=== PATIENT | male | born 1930 | race Caucasian/White ===

== ENCOUNTER 2016-08-15 20:57 | Observation (INO) ==
[2016-08-15] MEDS ORDERED: Acetaminophen 325 MG TABLET PO PRN (23:51)
[2016-08-15] MEDS ORDERED: Furosemide 20 MG/2 ML VIAL IVP ONE (23:59)
[2016-08-15] MEDS ORDERED: Ipratropium/Albuterol Neb 3 ML IH PRN (23:59)
--- NOTE | 2016-08-16 00:17 | Internal Med History&Physical ---
Date of Encounter: 08/15/16 Time of Encounter: 23:00 Assessment and Plan (1) CHF (congestive heart failure) Current visit: Yes Status: Acute Patient has clinical signs of CHF with mild respiratory distress, wheezing, chest x-ray shows pulmonary congestion, and elevated BNP. - Review patient's old chart, he has severe aortic stenosis. - We will give patient one dose of mild diuretic. - Oxygen treatment. - Echocardiogram - Continuous close monitoring. Qualifiers: Congestive heart failure type: unspecified congestive heart failure type Congestive heart failure chronicity: unspecified congestive heart failure chronicity Qualified Code(s): I50.9 - Heart failure, unspecified (2) Vertigo Current visit: Yes Status: Acute Patient has chronic him brought to go with tinnitus, probably peripheral vertigo. - CT head negative for infarct - We will place meclizine for symptom control - Patient may need follow ENT as outpatient. - PTOT evaluation for placement. (3) CAD (coronary artery disease) Current visit: Yes Status: Acute Patient has a history of CAD S/P stent. Denies chest pain at this point. We will continue aspirin, beta diana, and statin. - We will track 3 sets of troponin since there is an elevated troponin. - Follow echocardiogram. Qualifiers: Coronary Disease-Associated Artery/Lesion type: [place] artery [place] vs. transplanted heart: [place] heart Associated angina: without angina Qualified Code(s): I25.10 - Atherosclerotic heart disease of [place] coronary artery without angina pectoris (4) Hypertension Current visit: Yes Status: Acute Continue home medication. Qualifiers: Hypertension type: essential hypertension Qualified Code(s): I10 - Essential (primary) hypertension (5) DVT prophylaxis Current visit: Yes Status: Acute Heparin subcutaneously. (6) Elevated troponin Current visit: No Status: Acute First troponin 0.17. Patient denies chest pain or shortness of breath. Will check 3 sets of troponin. - We will consult cardiology for further management consider patient has severe , history of CAD, signs of CHF and troponin elevation. - Continue close cardiac monitoring. Internal Medicine - H&P: HPI Chief complaint: Dizziness Admitted From: Home Plans for Post Hospital Care: Home History of present illness: Mr. Bess is a 86 year old male transferred from [facility] emergency room for dizziness. Patient said he has chronic dizziness for 4 month, symptoms sometimes gets better but sometimes is worse. He has right ear tinnitus. Patient had CT had in [facility] emergency room, result is unremarkable. However, patient has elevated troponin, and a chest x-ray shows pulmonary congestion. Patient was transferred to [facility] for further management. Patient denies chest pain, shortness of breath, he has mild nausea but no vomiting. He has no fever. He has a chronic diarrhea for 2 years, with 3-4 times watery diarrhea per night. He had C. difficile test previously which was negative. When I saw patient, to me he is in mild respiratory distress although he denies shortness of breath. Patient is awake alert oriented 3. I discussed the CODE STATUS with the patient. He is DNR/DNI. Past Med Surg Social Fam HX - Past Medical History Medical history: coronary artery disease, hyperlipidemia, hypertension, valvular heart disease Psychiatric history: no psych history - Past Surgical History Surgical History: angioplasty/stent, cholecystectomy - Social History Smoking Status: Former smoker Smokeless Tobacco Status: No Alcohol use: none Drug use: unknown Internal Medicine - H&P: Meds Amiodarone [Cordarone] 200 mg PO DAILY 12/12/15 [History] Amlodipine [Norvasc] 2.5 mg PO DAILY 12/12/15 [History] Aspirin 81 mg PO DAILY 12/12/15 [History] Colestipol HCl [Colestid] 1 gm PO BID 12/12/15 [History] Metoprolol Tartrate 25 mg PO BID 12/12/15 [History] Pravastatin Sodium [Pravachol] 40 mg PO HS 12/12/15 [History] Diphenhydramine HCl [Nighttime Sleep Aid] 50 mg PO HS 08/15/16 [History] Ferrous Sulfate [Iron] 325 mg PO DAILY 08/15/16 [History] Pot Chloride/Pot Bicarb/Cit AC [Potassium Cl 25 Meq Tab Eff] 25 meq PO DAILY 09/26 [History] Allergies No Known Allergies Allergy (Verified 11/19/14 06:47) All Systems PM: A 10-system review of systems was performed and is negative for pertinent findings except as documented above in the HPI. - Constitutional Vitals: Temp Pulse Resp BP Pulse Ox 97.6 F 84 16 114/72 90 08/15/16 23:17 08/15/16 23:17 08/15/16 23:17 08/15/16 23:17 08/15/16 23:17 General appearance: Present: mild distress, A&O X 3, answers questions appropriately - Head Head exam: Present: atraumatic, normocephalic - Eye Eye exam: Present: PERRL, conjuntiva pink, sclera anicteric Pupils: Present: PERRL - Neck Neck exam general surgery: Present: supple, trachea midline. Absent: lymphadenopathy - Respiratory Respiratory exam: Present: CTAB, wheezes (Scattered wheezes bilaterally). Absent: accessory muscle use, rales, rhonchi - Cardiovascular Cardiovascular exam: Present: RRR, +S1, +S2. Absent: diastolic murmur, gallop, rubs, systolic murmur - GI/Abdominal GI/Abdominal exam: Present: normal bowel sounds, soft, no peritoneal signs. Absent: distended, tenderness - Extremities Exam Extremities exam: Present: pedal edema (Mild to moderate pedal edema bilaterally ), warm, radial pulses palpable and symetrical. Absent: calf tenderness, cyanotic - Neurological Exam Neurological exam: Present: CN II-XII intact, oriented X3, no focal deficits. Absent: pronater drift, facial droop, speech deficit - Skin Skin exam: Present: dry, intact Internal Med - H&P Results - EKG Data -: EKG Interpreted by Myself (LBBB which is old (seen on previous EKG)) EKG shows normal: sinus rhythm Rate: normal
[2016-08-16 01:01] LABS: Basophils % 0.1 %; Eosinophils # 0.1 K/mcL (0.0-0.6); Eosinophils % 0.4 %; Hematocrit 32.4 % (37.5-50.1); Hemoglobin 10.8 g/dL (12.9-16.9); Immature Granulocytes % 0.7 % (0-4); Lymphocytes # 2.5 K/mcL (0.6-4.6); Mean Corpuscular HGB Conc 33.3 g/dL (31.6-35.5); Mean Corpuscular Hemoglobin 30.9 pg (28.0-33.3); Mean Corpuscular Volume 92.6 fL (83.0-100.0); Mean Platelet Volume 9.2 fL (9.4-12.4); Monocytes % 7.5 %; Neutrophils # 9.4 K/mcL (1.6-8.9); Platelet Count 291 K/mcL (140-400); Red Cell Distribution Width 14.6 % (11.5-14.5); Segmented Neutrophils % 72.3 %
[2016-08-16 01:10] LABS: BUN/Creatinine Ratio 27 (6-26); Blood Urea Nitrogen 20 mg/dL (8-26); Calcium 8.1 mg/dL (8.6-10.8); Carbon Dioxide 26 mEq/L (19-29); Chloride 99 mEq/L (98-109); Glucose 123 mg/dL (70-99); Magnesium 1.8 mg/dL (1.6-2.6); Osmolality,Calculated 282 (280-300); Phosphorous 2.8 mg/dL (2.3-4.7); Potassium 3.7 mEq/L (3.5-4.5); Sodium 134 mEq/L (136-145); eGFR For African Americans > 60 (> 60); eGFR For Non-African Americans > 60 (> 60)
[2016-08-16] MEDS: *HR* Heparin 5,000 UNIT/ML VIAL SQ SCH ×2 (06:17→18:29)
[2016-08-16] MEDS: Aspirin 81 MG TAB.CHEW PO SCH (08:47)
[2016-08-16] MEDS ORDERED: amLODIPine 5 MG TABLET PO SCH (09:00)
--- NOTE | 2016-08-16 10:00 | Internal Med Progress Note ---
<Sidney Dc - Last Filed: 08/16/16 15:08> Date of Encounter: 08/16/16 Time of Encounter: 08:20 - Assessment and plan (1) CHF (congestive heart failure) Current Visit: Yes Status: Acute Assessment and plan: 08/16/16 Echo EF 65%, indeterminate LV diastolic function. Doppler interrogation of the aortic valve was not well evaluated. LVOT was superimposed. Mild-moderate tricuspic regurgitation. At least mild pulmonary hypertension by TR gradient. IVC is not visualized to estimate RVSP. HFpEF He appears fairly euvolemic on exam, though 1-V CXR from [facility] discloses 1. Limited examination due to positioning and low lung volumes 2. Bibasilar airspace opacities likely represent atelectasis. 3. Questionable bilateral pleural effusions. 4. Pulmonary vascular congestion and/or central vascular crowding Monitor I/O Cautious diuresis regimen Qualifiers: Congestive heart failure type: unspecified congestive heart failure type Congestive heart failure chronicity: unspecified congestive heart failure chronicity Qualified Code(s): I50.9 - Heart failure, unspecified (2) Syncope Current Visit: Yes Status: Acute Assessment and plan: Clinically, suggestive of vaso-vagal, though aortic stenosis warrants further eval. 02/2015 [facility] TAVR 29mm Corevalve 08/16 Echo does not have best evaluation of aortic valve. Consideration of further studies, ? OTF Appreciate cardiology recommendations. Qualifiers: Syncope type: vasovagal syncope Qualified Code(s): R55 - Syncope and collapse (3) CAD (coronary artery disease) Current Visit: Yes Status: Chronic Assessment and plan: Cont ASA, Statin, BB Qualifiers: Coronary Disease-Associated Artery/Lesion type: [place] artery [place] vs. transplanted heart: [place] heart Associated angina: without angina Qualified Code(s): I25.10 - Atherosclerotic heart disease of [place] coronary artery without angina pectoris (4) Elevated troponin Current Visit: Yes Status: Acute Assessment and plan: Mild, relatively adynamic, peak of 0.18, trended down 0.13 Suspect 2* Aortic stenosis and CHF exacerbation. Appreciate cardiology recs. (5) DVT prophylaxis Current Visit: Yes Status: Acute Assessment and plan: Hep 5000 U SC BID - Subjective Interval history: Patient seen/eval, he affirms events prompting hospitalization. Transferred from [facility] ED for lightheadedness, with 2 weeks of LE swelling. He denies passing out or head trauma. Per outpatient records, he has history chronic Afib, CAD, 02/2015 [facility] TAVR 29mm Corevalve He is somewhat hard of hearing, appears comfortable. With further inquiry, he reports that most recent lightheaded spell prior to eval at ED was while he was getting up from the toilet. He denies any overt chest pain/tightness/palpitations/pauses. Does have some dyspnea on exertion, no cough or sick contacts. - Constitutional Vitals: Temp Pulse Resp BP Pulse Ox 97.7 F 76 16 100/58 96 08/16/16 06:50 08/16/16 06:50 08/16/16 06:50 08/16/16 06:50 08/16/16 06:50 General appearance: Present: cooperative, A&O X 3, answers questions appropriately - Head Head exam: Present: atraumatic, normocephalic - Eye Eye exam: Present: EOMI, sclera anicteric - ENT ENT exam: Present: mucous membranes moist - Neck Neck exam general surgery: Present: supple, trachea midline - Respiratory Respiratory exam: Absent: respiratory distress, rhonchi, wheezes - Cardiovascular Cardiovascular exam: Present: irregular rhythm, +S1, +S2. Absent: JVD Additional comments: systolic ejection click RSB, 3/6 - GI/Abdominal GI/Abdominal exam: Present: soft, no peritoneal signs. Absent: tenderness - Extremities Exam Extremities exam: Present: warm, radial pulses palpable and symetrical. Absent : pedal edema - Neurological Exam Neurological exam: Absent: facial droop, speech deficit Internal Medicine: Result - Labs CBC & Chem 7: 08/16/16 00:32 08/16/16 00:32 Labs: Short CBC 08/16/16 Range/Units 00:32 WBC 13.0 H (4.3-11.1) K/mcL Hgb 10.8 L (12.9-16.9) g/dL Hct 32.4 L (37.5-50.1) % Plt Count 291 (140-400) K/mcL Neutrophils # 9.4 H (1.6-8.9) K/mcL BMP 08/16/16 00:32 Sodium 134 L Potassium 3.7 Chloride 99 Carbon Dioxide 26 BUN 20 Creatinine 0.75 Glucose 123 H Calcium 8.1 L Cardiac Enzymes 08/16/16 08/16/16 Range/Units 00:32 05:56 Troponin I 0.16 H* 0.18 H* (0-0.03) ng/mL Consult Discharge Plan - Plan Referrals: Estephania Humphrey MD [Primary Care Provider] - <Errol Waterman - Last Filed: 08/16/16 17:28> Date of Encounter: 08/16/16 - Constitutional Vitals: Temp Pulse Resp BP Pulse Ox 98.1 F 69 16 99/56 93 08/16/16 16:24 08/16/16 16:24 08/16/16 16:24 08/16/16 16:24 08/16/16 16:24 Internal Medicine: Result - Labs CBC & Chem 7: 08/16/16 00:32 08/16/16 00:32 Labs: Short CBC 08/16/16 Range/Units 00:32 WBC 13.0 H (4.3-11.1) K/mcL Hgb 10.8 L (12.9-16.9) g/dL Hct 32.4 L (37.5-50.1) % Plt Count 291 (140-400) K/mcL Neutrophils # 9.4 H (1.6-8.9) K/mcL BMP 08/16/16 00:32 Sodium 134 L Potassium 3.7 Chloride 99 Carbon Dioxide 26 BUN 20 Creatinine 0.75 Glucose 123 H Calcium 8.1 L Cardiac Enzymes 08/16/16 08/16/16 08/16/16 Range/Units 00:32 05:56 12:08 Troponin I 0.16 H* 0.18 H* 0.13 H* (0-0.03) ng/mL - Attending Attestation I examined this patient and my medical decision-making was reviewed with the LIBRARY SUPERVISOR/PA/Advanced Practice Nurse/Resident Physician. I agree with the documented findings, disposition and treatment plan as described except to the extent set forth below. this is event note not a billable note
--- NOTE | 2016-08-16 12:57 | Cardiology Consult Note ---
<Shahram Collins - Last Filed: 08/16/16 13:58> Date of Encounter: 08/16/16 Time of Encounter: 13:00 Assessment and Plan (1) Elevated troponin Current Visit: No Status: Acute Per Cardiology: Troponins noted to be 0.17, 0.16, 0.18, and 0.13. Of note previous troponin noted to be 0.05 in the past. Patient denies any chest pain. Echo pending. Patient with past history of severe aortic stenosis, upon presentation suspicious for recurrent stenosis which could explain troponin elevation. Further recommendations after echo. No cardiac rehabilitation consult warranted at this time, we will reevaluate based on hospital course. Will discuss and review with Dr. Hughes. (2) CAD (coronary artery disease) Current Visit: Yes Status: Chronic Per Cardiology: History of CAD with last heart catheterization November 11 showing proximal LAD 40% stenosis with patent stent, OM1 20% stenosis, proximal RCA 30% stenosis, and distal RCA 50% stenosis. Of note right iliofemoral had severe tortuosity without significant disease and left iliofemoral moderate tortuosity without significant disease. He denies any chest pain. Again further recommendations pending echo. On aspirin, beta diana, statin. Qualifiers: Coronary Disease-Associated Artery/Lesion type: [place] artery [place] vs. transplanted heart: [place] heart Associated angina: without angina Qualified Code(s): I25.10 - Atherosclerotic heart disease of [place] coronary artery without angina pectoris (3) Elevated brain natriuretic peptide (BNP) level Current Visit: Yes Status: Acute Per Cardiology: BMP noted to be elevated at 854. Chest x-ray showed bibasilar airspace opacities likely atelectasis, questionable bilateral pleural effusions, pulmonary vascular congestion and/or central vascular crowding. Patient received a one-time dose of IV Lasix. Net I and O +60 ml. (4) Status post transcatheter aortic valve replacement (TAVR) using bioprosthesis Current Visit: Yes Status: Chronic Per Cardiology: Patient with past history severe aortic stenosis and is status post TAVR with 29mm CoreValve at [facility] 02/2015. Patient presented with increased frequency of dizziness and reported to syncopal events. Awaiting echo results. (5) Dizziness Current Visit: No Status: Acute Per Cardiology: Past history of dizziness and on meclizine as outpatient. Patient reports increased frequency and syncopal events concerning in setting of his past history severe aortic stenosis. Discussion w patient/family: The assessment and plan as outlined above was discussed with the patient who expressed understanding and agreement. All questions were answered. Thank you for involving us in the care of your patient. Please call with any questions. History of Present Illness Consult date: 08/16/16 Requesting physician: Natasha Reeves Consult reason: Elevated Troponin Chief complaint: Falls History of present illness: Mr. Bess is a 86 year old male with a relevant past medical history of hypertension, hyperlipidemia, CAD, history of hemicolectomy, diverticulosis, hard of hearing, persistent atrial fibrillation, status post TAVR with 29mm Corevalve at [facility] February 2015, past history of nicotine abuse. Last seen by Dr. Tapia in cardiology office April 2016. Of note he is noted to have chronic dizziness. Also, on amiodarone for rate control and on aspirin only for anticoagulation due to fall risk. Patient is DNR/CCA/DNI. Cardiology consult today for mild troponin elevations. Patient reports 2 falls over the past week with passing out and falling on the floor with one occurring walking to the bathroom and the other occurring from sitting on sofa to standing upright. He reports increased frequency of his dizziness. He denies any shortness of breath or chest pain. He denies any palpitations. Confirms past history of atrial fibrillation. He denies any other concerns at this point. Of note, patient is hard of hearing. No family currently present at bedside. Past Med Surg Social Fam HX - Past Medical History Attestation: Yes The following information was validated with the patient. Source: patient, old records reviewed Medical history: coronary artery disease, GI bleed, hyperlipidemia, hypertension , valvular heart disease Psychiatric history: no psych history - Past Surgical History Surgical History: angioplasty/stent, cholecystectomy, colectomy - Social History Smoking Status: Former smoker Smokeless Tobacco Status: No Alcohol use: none Drug use: none Medications and Allergies Amiodarone [Cordarone] 200 mg PO DAILY 12/12/15 [History] Amlodipine [Norvasc] 2.5 mg PO DAILY 12/12/15 [History] Aspirin 81 mg PO DAILY 12/12/15 [History] Colestipol HCl [Colestid] 1 gm PO BID 12/12/15 [History] Metoprolol Tartrate 25 mg PO BID 12/12/15 [History] Pravastatin Sodium [Pravachol] 40 mg PO HS 12/12/15 [History] Diphenhydramine HCl [Nighttime Sleep Aid] 50 mg PO HS 08/15/16 [History] Ferrous Sulfate [Iron] 325 mg PO DAILY 08/15/16 [History] Potassium Chloride [K-Tab ER] 20 meq PO DAILY 08/16/16 [History] Allergies No Known Allergies Allergy (Verified 11/19/14 06:47) All Systems Review: A 10-system review of systems was performed and is negative for pertinent findings except as documented above in the HPI. - Cardiovascular Cardiovascular: as per HPI, syncope - Neurological Neurological: dizziness, syncope Physical Examination Vital Signs, Last 4 Hours Temp Pulse Resp BP Pulse Ox 08/16/16 11:39 97.7 F 78 16 121/65 94 General: Conversant, No Apparent Distress HEENT: Atraumatic, Normocephaly Cardiac: Other (Irregularly irregular, grade 3/6 murmur appreciated) Lungs: Normal Breath Sounds, No Wheeze, Rales, Rhonchi, Other (Slightly diminished breath sounds throughout) Neuro: Alert and responsive, No focal deficits noted, Other (Hard of hearing) Skin: Other (Left arm ecchymosis noted) Musculoskeletal: No Chest Wall Tenderness Extremities: Other (Trace nonpitting bilateral lower extremity edema) Results 08/16/16 00:32 08/16/16 00:32 Lab Results Laboratory Tests 12/06/15 08/15/16 08/16/16 17:10 18:55 00:32 Hgb Hct Magnesium Troponin I 0.05 H* 0.17 H* 0.16 H* 08/16/16 08/16/16 08/16/16 00:32 00:32 05:56 Hgb 10.8 L Hct 32.4 L Magnesium 1.8 Troponin I 0.18 H* 08/16/16 12:08 Hgb Hct Magnesium Troponin I 0.13 H* Intake & Output 08/13/16 08/14/16 08/15/16 08/16/16 23:59 23:59 23:59 23:59 Intake Total 360 / 360 Output Total 300 / 300 Balance 60 / 60 Weight 72.6 kg Active Medications Acetaminophen (Tylenol) 650 mg PO Q6HR PRN PRN Reason: Mild Pain (1-3) Stop: 02/14/17 23:52 Albuterol/Ipratropium (Duoneb) 3 ml IH [id number] PRN; Protocol PRN Reason: Shortness Of Breath/Wheezing Stop: 02/14/17 23:59 Amlodipine Besylate (Norvasc) 2.5 mg PO DAILY RADHA PRN Reason: Protocol Stop: 02/15/17 09:01 Last Admin: 08/16/16 08:47 Dose: 2.5 mg Aspirin (Aspirin) 81 mg PO DAILY RADHA Stop: 02/15/17 09:01 Last Admin: 08/16/16 08:47 Dose: 81 mg Docusate Sodium (Colace) 100 mg PO BID PRN PRN Reason: Constipation Stop: 02/14/17 23:52 Heparin Sodium (Porcine) (Heparin) 5,000 unit SQ Q12HCO RADHA Stop: 02/15/17 06:01 Last Admin: 08/16/16 06:17 Dose: 5,000 unit Loperamide HCl (Imodium) 2 mg PO Q4HR PRN PRN Reason: Diarrhea Stop: 02/14/17 23:59 Meclizine HCl (Antivert) 12.5 mg PO TID PRN PRN Reason: Vertigo Stop: 02/15/17 09:01 Metoprolol Tartrate (Lopressor) 25 mg PO BID [facility] Stop: 02/15/17 09:01 Last Admin: 08/16/16 08:48 Dose: 25 mg Simvastatin (Zocor) 20 mg PO HS [facility] Stop: 02/15/17 21:01 - Imaging and Cardiology Echo: pending Cardiac cath: report reviewed - EKG Interpretation EKG results cardiology: personally reviewed (afib), other (avg hr 76, afib) Consult Discharge Plan - Plan Referrals: Estephania Humphrey MD [Primary Care Provider] - <Margarita Hughes - Last Filed: 08/16/16 15:59> Date of Encounter: 08/16/16 Assessment and Plan Discussion w patient/family: The assessment and plan as outlined above was discussed with the patient and/or family members who expressed understanding and agreement. All questions were answered. Thank you for involving us in the care of your patient. Please call with any questions. History of Present Illness History of present illness: Mr. Bess is a 86 year old male All Systems Review: A 10-system review of systems was performed and is negative for pertinent findings except as documented above in the HPI. Results 08/16/16 00:32 08/16/16 00:32 Lab Results 08/16/16 08/16/16 08/16/16 00:32 00:32 00:32 WBC 13.0 H Hgb 10.8 L Hct 32.4 L Plt Count 291 Sodium 134 L Potassium 3.7 Chloride 99 Carbon Dioxide 26 BUN 20 Creatinine 0.75 Glucose 123 H Calcium 8.1 L Magnesium 1.8 Troponin I 0.16 H* 08/16/16 08/16/16 05:56 12:08 WBC Hgb Hct Plt Count Sodium Potassium Chloride Carbon Dioxide BUN Creatinine Glucose Calcium Magnesium Troponin I 0.18 H* 0.13 H* - Attending Attestation I examined this patient and my medical decision-making was reviewed with the CORN SHREDDER/PA/Advanced Practice Nurse/Resident Physician. I agree with the documented findings, disposition and treatment plan. Mr. Bess presents for dizzy spells and falls over the past few weeks. He thinks he may be passing out but isn't always sure. More recently, he was walking to the bathroom and fell. Another event he describes occurring after getting up from a sitting position. 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 The aortic valve Doppler signal was not well obtained due to superimposition of the LVOT spectrum. Unfortunately, due to his age and comorbidities, he would not be a good surgical candidate. Therefore, I recommend pharmacologic therapy. We will stop norvasc and uptitrate his BB to help allow for increased ventricular filling. May consider the addition of disopyramide. As a last line therapy, could also consider dual chamber pacing if patient remains symptomatic despite medical therapy. However, his most recent falling events may be multifactorial. Mild, flat troponin elevation may be secondary to mild diastolic CHF from moderately severe MR. Recommend using diuretics with caution given his LVOT gradient. Otherwise he has chronic AFIB and is on amiodarone and aspirin only due to fall risk.
--- NOTE | 2016-08-16 13:55 | ECHO - Doppler Report ---
Echocardiogram Name: Harjinder Bess Date of Study: 08/16/2016 Date: 1930 Ht: 72.0 in Medical Record#: [id number] Age: 86 Wt: 160.0 lb Gender: Male BSA: 1.94 Order #: [id number] Location: [facility] Room #: 2NE27 Reading Physician: Margarita Hughes DO Technical Delivery Manager: Angie Hager RDCS Ordering Physician: Natasha Reeves MD Primary Physician: Estephania Sotomayor MD Indications: Shortness of breath Impressions: LVEF 65%. Normal left ventricular size and systolic function. Indeterminate left ventricular diastolic function Normal right ventricular size and function. Doppler interrogation of the aortic valve was not well evaluated. LVOT was superimposed. Mild-moderate tricuspid regurgitation. At least mild pulmonary hypertension by TR gradient. IVC is not visualized to estimate RVSP. Left Ventricular Wall Motion: Rest Echo Findings The basal inferior wall was hypokinetic. All other wall segments showed normal motion. Findings: Study Quality * Technically adequate exam. ECG Findings * Unclear underlying rhythm. BBB is present. Left Ventricle * Basal sigmoid septum with severe basal septal hypertrophy measuring 3.0 cm. * LVEF 65%. * Indeterminate diastolic function. Aortic Valve * No aortic regurgitation. * Aortic valve not well visualized. * Suboptimal Doppler interrogation. Spectral signal is superimposed with LVOT. Mitral Valve * Moderate mitral annular calcification * No mitral stenosis. * JAZMÍN of AMVL best seen image #[id number]. * Moderate-severe eccentric mitral regurgitation. Aorta * Normally sized aortic root. Tricuspid Valve * Normal tricuspid valve structure. * Mild-moderate tricuspid regurgitation. Pulmonic Valve * Pulmonic valve is not well visualized. * No pulmonic stenosis. * No pulmonic regurgitation. Right Ventricle * Normal right ventricular structure and function. Not well visualized in subcostal view. Right Atrium * Normal right atrial size. Pulmonary Artery * Pulmonary artery not well visualized. Left Atrium * Severely dilated left atrium. Interatrial Septum * Interatrial septum not well evaluated. Pericardium * There is no pericardial effusion present. IVC * The IVC is not well evaluated. History Hypertension Hypercholesteremia History of CAD/PTCA Valvular Disease 11-09-14 a Previous Echo was performed. Measurements: BP: 100/ 58 2D Normal Values RVIDd: 2.70 cm <2.7 cm IVSd: 2.20 cm 0.6 - 1.0 cm LVIDd: 4.60 cm 3.7 - 5.6 cm LVPWd: 1.00 cm 0.6 - 1.1 cm LVIDs: 3.30 cm 1.5 - 3.6 cm AO: 2.00 cm < 4.0 cm LA: 3.70 cm 2.0 - 4.0cm %FS: 28.30 cm >25 % LVOT Diam: 2.00 cm LA volume: 79 Mitral Valve Pressure Time:50.00 msec Valve Area:4.40 cm2 Peak E:2.19 m/sec Peak E' Lat Anthony:10.2 cm/s Peak E' Med Anthony:10.9 cm/s E/E' Lat Ratio:21.5 E/E' Med Ratio:20.1 Aortic Valve Peak Anthony:5.55 m/sec Mean Anthony:3.44 m/sec Peak Grad:123.00 mmHg Mean Grad:59.00 mmHg Tricuspid Valve TV Regurg Peak Grad: 43.00mmHg TV Regurg Peak Anthony: 3.27m/sec Updated by Margarita Hughes on 08/16/2016 1:45:41 PM electronically signed on 08/16/2016 1:51:11 PM with status of Final Wall Motion Pfeiffer: 1=Normal, 2=Hypokinesis, 3=Akinesis, 4=Dyskinesis, 5=Aneurysmal, 6=Hyperkinetic, X=Not Visualized (Blank)=Missing
[2016-08-16] MEDS: *HR* Amiodarone 200 MG TABLET PO SCH ×2 (18:29→21:10)
[2016-08-17 05:27] LABS: Basophils % 0.4 %; Eosinophils # 0.1 K/mcL (0.0-0.6); Eosinophils % 1.1 %; Hemoglobin 10.7 g/dL (12.9-16.9); Immature Granulocytes % 1.1 % (0-4); Lymphocytes # 3.7 K/mcL (0.6-4.6); Lymphocytes % 34.5 %; Mean Corpuscular HGB Conc 33.4 g/dL (31.6-35.5); Mean Corpuscular Hemoglobin 30.7 pg (28.0-33.3); Mean Corpuscular Volume 91.7 fL (83.0-100.0); Mean Platelet Volume 9.1 fL (9.4-12.4); Neutrophils # 5.8 K/mcL (1.6-8.9); Platelet Count 283 K/mcL (140-400); Red Blood Count 3.49 M/mcL (4.19-5.50); Red Cell Distribution Width 14.6 % (11.5-14.5); Segmented Neutrophils % 53.9 %
[2016-08-17 05:48] LABS: BUN/Creatinine Ratio 28 (6-26); Blood Urea Nitrogen 21 mg/dL (8-26); Calcium 7.6 mg/dL (8.6-10.8); Carbon Dioxide 28 mEq/L (19-29); Chloride 99 mEq/L (98-109); Glucose 88 mg/dL (70-99); Magnesium 1.6 mg/dL (1.6-2.6); Osmolality,Calculated 278 (280-300); Potassium 3.6 mEq/L (3.5-4.5); Sodium 133 mEq/L (136-145); eGFR For African Americans > 60 (> 60); eGFR For Non-African Americans > 60 (> 60)
[2016-08-17] MEDS: *HR* Heparin 5,000 UNIT/ML VIAL SQ SCH ×2 (06:46→17:55)
--- NOTE | 2016-08-17 08:19 | Internal Med Progress Note ---
<Alfie Graham - Last Filed: 08/17/16 14:48> Date of Encounter: 08/17/16 Time of Encounter: 08:18 - Assessment and plan (1) Hypertrophic cardiomyopathy Current Visit: Yes Status: Acute Assessment and plan: 86-year-old male with history of coronary artery disease, valvular heart disease , benign positional vertigo presents with chief complaint of dizziness. Patient had dizziness for the last 4 months. Initially he was on meclizine which helped control the dizziness however after switching primary care physicians he has not been prescribed a meclizine and his dizziness has become worse. At [place] he is found to have elevated troponin. He had a chest x- ray that shows pulmonary congestion. However patient denies chest pain, shortness of breath, palpitations. Patient has history of coronary artery disease and his last heart catheterization was November 112014 which showed a 40% stenosis of LAD with patent stent, OM1 of 20% stenosis and a RCA 30% stenosis, distal RCA 50% stenosis. hx of severe aortic stenosis status post TAVR at [place]. Patient had troponins of 0.17, 0.16, 0.18, and 0.13. He had a echocardiogram showing an EF of 65% with left ventricular outflow tract obstruction. He is on aspirin, beta diana, statin Cardiology has started his amiodarone and discontinued amlodipine. We have also increased her Lopressor to 50 mg by mouth twice a day. Cardiology will repeat echocardiogram to reevaluate LVOT. Continue aspirn, statin, bblocker Will discuss with cardiology if patient may need transfer to [place] for evaluation of TAVR. (2) Syncope Current Visit: Yes Status: Acute Assessment and plan: Previous charting states that patient had lightheadedness after getting up from the toilet. Syncope may be 2nd to vaso vagal but is complicated by hx of aortic stenosis, and hx of vertigo. They have increased metoprolol to 50mg BID and restarted patient on amiodarone. Patient should continue meclazine to control his vertigo. Qualifiers: Syncope type: vasovagal syncope Qualified Code(s): R55 - Syncope and collapse (3) CAD (coronary artery disease) Current Visit: Yes Status: Chronic Assessment and plan: Patient has history of coronary artery disease and his last heart catheterization was November 112014 which showed a 40% stenosis of LAD with patent stent, OM1 of 20% stenosis and a RCA 30% stenosis, distal RCA 50% stenosis. Continue aspirin, statin, beta diana. Patient denies any chest pain. His rate is irregularly irregular. afib. rate controlled on metoprolol. Qualifiers: Coronary Disease-Associated Artery/Lesion type: [place] artery [place] vs. transplanted heart: [place] heart Associated angina: without angina Qualified Code(s): I25.10 - Atherosclerotic heart disease of [place] coronary artery without angina pectoris (4) DVT prophylaxis Current Visit: Yes Status: Acute Assessment and plan: Continue heparin subcutaneous every 12 - Subjective Interval history: Patient denies dizziness currently but does state that if he stands up his dizziness returns. He describes his dizziness as the room spinning. He denies shortness of breath, cough, chest pain, palpitations, abdominal pain, nausea, diaphoresis. - Constitutional Vitals: Temp Pulse Resp BP Pulse Ox 97.6 F 63 18 120/65 95 08/17/16 07:34 08/17/16 07:34 08/17/16 07:34 08/17/16 07:34 08/17/16 07:34 General appearance: Present: cooperative, A&O X 3, answers questions appropriately - Neck Neck exam general surgery: Present: supple, trachea midline. Absent: lymphadenopathy - Respiratory Respiratory exam: Present: CTAB. Absent: accessory muscle use, rales, rhonchi, wheezes - Cardiovascular Cardiovascular exam: Present: irregular rhythm (Irregularly), systolic murmur ( Systolic ejection click right sternal border 3 out of 6) - GI/Abdominal GI/Abdominal exam: Present: normal bowel sounds, soft, no peritoneal signs. Absent: distended, tenderness - Extremities Exam Extremities exam: Present: warm, radial pulses palpable and symetrical. Absent : calf tenderness, cyanotic, pedal edema Internal Medicine: Result - Labs CBC & Chem 7: 08/17/16 05:00 08/17/16 05:00 Labs: Short CBC 08/17/16 Range/Units 05:00 WBC 10.8 (4.3-11.1) K/mcL Hgb 10.7 L (12.9-16.9) g/dL Hct 32.0 L (37.5-50.1) % Plt Count 283 (140-400) K/mcL Neutrophils # 5.8 (1.6-8.9) K/mcL [facility] 08/17/16 05:00 Sodium 133 L Potassium 3.6 Chloride 99 Carbon Dioxide 28 BUN 21 Creatinine 0.74 Glucose 88 Calcium 7.6 L Cardiac Enzymes 08/16/16 Range/Units 12:08 Troponin I 0.13 H* (0-0.03) ng/mL Consult Discharge Plan - Plan Referrals: Estephania Humphrey MD [Primary Care Provider] - 08/24/16 10:30 am <Errol Waterman - Last Filed: 08/17/16 17:50> Date of Encounter: 08/17/16 - Constitutional Vitals: Temp Pulse Resp BP Pulse Ox 97.7 F 58 20 130/69 93 08/17/16 15:03 08/17/16 15:03 08/17/16 15:03 08/17/16 15:03 08/17/16 15:03 Internal Medicine: Result - Labs CBC & Chem 7: 08/17/16 05:00 08/17/16 05:00 Labs: Short CBC 08/17/16 Range/Units 05:00 WBC 10.8 (4.3-11.1) K/mcL Hgb 10.7 L (12.9-16.9) g/dL Hct 32.0 L (37.5-50.1) % Plt Count 283 (140-400) K/mcL Neutrophils # 5.8 (1.6-8.9) K/mcL [facility] 08/17/16 05:00 Sodium 133 L Potassium 3.6 Chloride 99 Carbon Dioxide 28 BUN 21 Creatinine 0.74 Glucose 88 Calcium 7.6 L - Attending Attestation I examined this patient and my medical decision-making was reviewed with the INDUSTRIAL HEALTH AND SAFETY PROFESSOR/PA/Advanced Practice Nurse/Resident Physician. I agree with the documented findings, disposition and treatment plan as described except to the extent set forth below. possible transfer to [facility] if card agrees
[2016-08-17] MEDS: *HR* Amiodarone 200 MG TABLET PO SCH ×2 (09:19→20:11)
[2016-08-17] MEDS: Aspirin 81 MG TAB.CHEW PO SCH (09:19)
--- NOTE | 2016-08-17 13:57 | Cardiology Progress Note ---
Date of Encounter: 08/17/16 Time of Encounter: 13:54 Assessment and Plan (1) Hypertrophic cardiomyopathy Current Visit: Yes Status: Acute Echo EF 65%. LVOT obstruction appears severe and subvalvular. Measured mean gradients 40-60mmHg. Systolic anterior motion of mitral valve with dynamic outflow tract obstruction. Severe basal septal hypertrophy 3.0 cm. Recommend uptitrating BB as pt will tolerate and gentle hydration. Will monitor closely with IV fluids given his moderate-severe MR on echo and risk of fluid overload. Will continue to follow. Will consider rechecking echo either during stay or outpt after treatment with BB and fluids to re-evaluate gradients. (2) Elevated troponin Current Visit: Yes Status: Acute Per Cardiology: Troponins noted to be 0.17, 0.16, 0.18, and 0.13 of unclear significance. Troponins flat and adynamic. Pt denies chest pain. Echo shows preserved EF 65%. Pt is DNR-CCA-DNI. Recommend medical management. (3) Dizziness Current Visit: No Status: Acute Per Cardiology: Past history of dizziness and on meclizine as outpatient. Patient reports increased frequency and syncopal events. Echo resulted--Doppler interrogation of aortic valve not well evaluated. LVOT was superimposed. The LVOT obstruction appears severe and subvalvular. Measured mean gradients 40-60mmHg. Systolic anterior motion of mitral valve with dynamic outflow tract obstruction. However, even in setting of hypertrophic CMP with outflow tract obstruction, would not expect pt to be dizzy at rest with normal BP. Continue Meclizine. Will hydrate with IV fluids. (4) CAD (coronary artery disease) Current Visit: Yes Status: Chronic Per Cardiology: History of CAD with last [facility] 11/2014 showing proximal LAD 40% stenosis with patent stent, OM1 20% stenosis, proximal RCA 30% stenosis, and distal RCA 50% stenosis. On aspirin, beta diana, statin. Qualifiers: Coronary Disease-Associated Artery/Lesion type: [place] artery [place] vs. transplanted heart: [place] heart Associated angina: without angina Qualified Code(s): I25.10 - Atherosclerotic heart disease of [place] coronary artery without angina pectoris (5) Status post transcatheter aortic valve replacement (TAVR) using bioprosthesis Current Visit: Yes Status: Chronic Per Cardiology: Patient with past history severe aortic stenosis and is status post TAVR with 29mm CoreValve at [place] 02/2015. On echo doppler interrogation of aortic valve was not well visualized. Will discuss with Dr. Harjinder Chacon regarding if it warrants repeating with definity. Discussion w patient/family: The assessment and plan as outlined above was discussed with the patient and/or family members who expressed understanding and agreement. All questions were answered. Thank you for involving us in the care of your patient. Please call with any questions. I will discuss all the above with Dr. Harjinder Chacon and make changes as necessary. Subjective Principal diagnosis: S/P TAVR, LVOT obstruction Interval history: Pt reports dizziness while lying in bed. He states it was worse this morning before he received his meds, now improved. Denies chest pain or dyspnea. Echo resulted--EF 65%. Doppler interrogation of aortic valve not well evaluated. LVOT was superimposed. The LVOT obstruction appears severe and subvalvular. Measured mean gradients 40-60mmHg. Systolic anterior motion of mitral valve with dynamic outflow tract obstruction. Mild-moderate TR, at least moderate phtn, moderate-severe MR. Severe basal septal hypertrophy 3.0cm. Objective Vital Signs, Last 4 Hours Temp Pulse Resp BP Pulse Ox 08/17/16 11:40 97.6 F 61 18 136/65 93 Vital Signs Temp Pulse Resp BP Pulse Ox 08/17/16 11:40 97.6 F 61 18 136/65 93 08/17/16 07:34 97.6 F 63 18 120/65 95 08/17/16 05:23 98.6 F 54 17 122/66 93 08/16/16 21:31 97.3 F L 79 22 111/52 90 08/16/16 16:24 98.1 F 69 16 99/56 93 Intake and Output 08/16/16 08/17/16 08/17/16 23:59 07:59 15:59 Intake Total 0 / 0 360 / 360 Output Total 150 / 150 300 / 300 Balance -150 / -150 -300 / -300 360 / 360 Intake: Oral 0 / 0 360 / 360 Output: Urine 150 / 150 300 / 300 Other: Meal Lunch Percent of Meal Consumed 0% Weight 98.6 kg Patient Weight 08/17/16 23:59 Weight 98.6 kg General: Conversant, No Apparent Distress HEENT: Atraumatic, Normocephaly, Mucus Membranes Moist Neck: No JVD, Normal carotid pulses Cardiac: Other (2/6 CB noted) Lungs: Other (mild wheezes) Neuro: Alert and responsive, No focal deficits noted Abdomen: Soft, Non-Tender Skin: No rashes noted on visualized skin Musculoskeletal: No Chest Wall Tenderness Extremities: No Clubbing, No Cyanosis, No Edema, Normal Pulses Results 08/17/16 05:00 08/17/16 05:00 Lab Results 08/17/16 08/17/16 05:00 05:00 WBC 10.8 Hgb 10.7 L Hct 32.0 L Plt Count 283 Sodium 133 L Potassium 3.6 Chloride 99 Carbon Dioxide 28 BUN 21 Creatinine 0.74 Glucose 88 Calcium 7.6 L Magnesium 1.6 Short CBC 08/17/16 Range/Units 05:00 WBC 10.8 (4.3-11.1) K/mcL Hgb 10.7 L (12.9-16.9) g/dL Hct 32.0 L (37.5-50.1) % Plt Count 283 (140-400) K/mcL Neutrophils # 5.8 (1.6-8.9) K/mcL BMP 08/17/16 Range/Units 05:00 Sodium 133 L (136-145) mEq/L Potassium 3.6 (3.5-4.5) mEq/L Chloride 99 (98-109) mEq/L Carbon Dioxide 28 (19-29) mEq/L BUN 21 (8-26) mg/dL Creatinine 0.74 (0.72-1.25) mg/dL Glucose 88 (70-99) mg/dL Calcium 7.6 L (8.6-10.8) mg/dL Active Medications Acetaminophen (Tylenol) 650 mg PO Q6HR PRN PRN Reason: Mild Pain (1-3) Stop: 02/14/17 23:52 Albuterol/Ipratropium (Duoneb) 3 ml IH [id number] PRN; Protocol PRN Reason: Shortness Of Breath/Wheezing Stop: 02/14/17 23:59 Amiodarone HCl (Cordarone) 200 mg PO BID [facility] Stop: 02/15/17 13:01 Last Admin: 08/17/16 09:19 Dose: 200 mg Aspirin (Aspirin) 81 mg PO DAILY [facility] Stop: 02/15/17 09:01 Last Admin: 08/17/16 09:19 Dose: 81 mg Docusate Sodium (Colace) 100 mg PO BID PRN PRN Reason: Constipation Stop: 02/14/17 23:52 Heparin Sodium (Porcine) (Heparin) 5,000 unit SQ Q12HCO [facility] Stop: 02/15/17 06:01 Last Admin: 08/17/16 06:46 Dose: 5,000 unit Loperamide HCl (Imodium) 2 mg PO Q4HR PRN PRN Reason: Diarrhea Stop: 02/14/17 23:59 Meclizine HCl (Antivert) 12.5 mg PO TID PRN PRN Reason: Vertigo Stop: 02/15/17 09:01 Last Admin: 08/17/16 09:19 Dose: 12.5 mg Metoprolol Tartrate (Lopressor) 50 mg PO BID [facility] Stop: 02/15/17 21:01 Last Admin: 08/17/16 09:19 Dose: 50 mg Simvastatin (Zocor) 20 mg PO HS [facility] Stop: 02/15/17 21:01 Last Admin: 08/16/16 21:09 Dose: 20 mg - Imaging and Cardiology Echo: report reviewed - EKG Interpretation EKG results cardiology: other (24 hour tele AVG HR 64, longest pause was 2.1 seconds, nocturnal.) Consult Discharge Plan - Plan Referrals: Estephania Humphrey MD [Primary Care Provider] - 08/24/16 10:30 am
[2016-08-17] MEDS ORDERED: 0.9 % Sodium Chloride 1,000 ML IVC SCH (14:15)
--- NOTE | 2016-08-17 17:35 | Electrocardiograph Report ---
[place] [address] Test Date: 2016-08-17 Pat Name: Harjinder Bess Department: 111 Room: 2N7 Gender: M Benzene Washer: : 1930 Requested By: Errol Waterman Order Number: [id number] Reading MD: Harjinder Chacon Measurements Intervals [place] Rate: 57 P: DE: 0 QRS: 14 QRSD: 170 T: 162 QT: 531 QTc: 525 Interpretive Statements UNCERTAIN REGULAR RHYTHM LEFT BUNDLE BRANCH BLOCK Electronically Signed On 08-17-2016 17:34:22 EDT by Harjinder Chacon
[2016-08-17 18:59] VITALS: BP 117/63
--- NOTE | 2016-08-17 20:48 | Discharge Summary ---
Date of Encounter: 08/17/16 Time of Encounter: 20:47 - Discharge Diagnosis (1) Syncope Priority: Primary Status: Acute Qualifiers: Syncope type: unspecified Qualified Code(s): R55 - Syncope and collapse (2) Status post transcatheter aortic valve replacement (TAVR) using bioprosthesis Priority: Secondary Status: Chronic (3) CAD (coronary artery disease) Priority: Secondary Status: Chronic Qualifiers: Coronary Disease-Associated Artery/Lesion type: [place] artery [place] vs. transplanted heart: [place] heart Associated angina: without angina Qualified Code(s): I25.10 - Atherosclerotic heart disease of [place] coronary artery without angina pectoris (4) Hypertension Priority: Secondary Status: Acute Qualifiers: Hypertension type: essential hypertension Qualified Code(s): I10 - Essential (primary) hypertension (5) Elevated troponin Priority: Secondary Status: Acute (6) Hypertrophic cardiomyopathy Priority: Secondary Status: Acute - Discharge Medications Home Medications: Amiodarone [Cordarone] 200 mg PO DAILY 12/12/15 [History] Amlodipine [Norvasc] 2.5 mg PO DAILY 12/12/15 [History] Aspirin 81 mg PO DAILY 12/12/15 [History] Colestipol HCl [Colestid] 1 gm PO BID 12/12/15 [History] Metoprolol Tartrate 25 mg PO BID 12/12/15 [History] Pravastatin Sodium [Pravachol] 40 mg PO HS 12/12/15 [History] Diphenhydramine HCl [Nighttime Sleep Aid] 50 mg PO HS 08/15/16 [History] Ferrous Sulfate [Iron] 325 mg PO DAILY 08/15/16 [History] Potassium Chloride [K-Tab ER] 20 meq PO DAILY 08/16/16 [History] Allergies/Adverse Reactions: Allergies No Known Allergies Allergy (Verified 11/19/14 06:47) Procedures/tests Complete & Pending: Procedures Performed prior 72 hours Category Date Time Status ECG 12 lead ECG [ECG] Routine Y 08/17/16 14:02 Completed EV echocardiogram Routine Y 08/16/16 00:01 Completed Date of admission: 08/15/16 22:43 Primary care physician: Estephania Humphrey, Consults: 08/15/16 23:53 Consult to Occupational Therapy [CONS] Routine Comment: Evaluate, develop and implement POC Reason for Consult: Dizziness Consult to Physical Therapy [CONS] Routine Comment: Evaluate, develop and implement POC Reason for Consult: Dizziness Consult to [employer] [CONS] Routine Reason for SW Consult: Advanced age with multiple chronic problems. 08/16/16 00:30 Consult to Cardiology [CONS] Routine Comment: Consulting Provider: Ayana Saldana Reason for Consult: Elevated troponin, Hx of CAD and Call Completed: No Discharging clinician: Errol Waterman - Patient Status Disposition: Transfer Other Condition: Serious Functional capacity at discharge: bed bound Overall status at discharge: patient is not back to baseline - Discharge Instructions Follow Up With: Estephania Humphrey MD [Primary Care Provider] - 08/24/16 10:30 am - Diet and Activity Activity: wear oxygen at all times Diet: regular diet Interval History: Mr. Bess is a 86 year old male transferred from [place] emergency room for dizziness. Patient said he has chronic dizziness for 4 month, symptoms sometimes gets better but sometimes is worse. He has right ear tinnitus. Patient had CT had in [place] emergency room, result is unremarkable. However, patient has elevated troponin, and a chest x-ray shows pulmonary congestion. Patient was transferred to [facility] for further management. Patient denies chest pain, shortness of breath, he has mild nausea but no vomiting. He has no fever. He has a chronic diarrhea for 2 years, with 3-4 times watery diarrhea per night. He had C. difficile test previously which was negative. Hospital course: Patient was hospitalized. Initial basic workup was done. Noted that patient's troponins are positive. Cardiology was consulted. Patient has a previous history of severe aortic stenosis. Patient underwent transcatheter aortic wall replacement at [facility] in the recent past. Cardiology recommended echocardiogram. Echocardiogram was suggestive of a severe critical aortic stenosis with the hypertrophy of the adjacent septum. These findings explained why patient has a recurrent dizziness/syncopal episode. Patient also has a severe critical aortic stenosis. I discussed case with metal neutralizer this morning ( Dr Murphy) As per cardiology: Patient needs to be transferred to tertiary care center preferably [facility] where he was previously underwent TAVR. I spoke with the patient's daughter Ms. Gray ([phone]) and explained at length regarding recommendation and findings as well as finding discussed with the patient. Patient and family member prefers to get transfer for further management at [facility]. I spoke with RN with Nessa from [facility]. All of above explained at length. She accepted the transfer to [facility] I called back patient's daughter Ms. Gray and informed her regarding acceptance of her father at [facility]. At the time of transfer patient and family members does not have any questions, concerns, update or recommendations. - Time Spent with Patient Total time spent providing and/or coordinating discharge services: - Constitutional Vitals: Temp Pulse Resp BP Pulse Ox 97.7 F 68 18 117/63 94 08/17/16 18:55 08/17/16 18:55 08/17/16 18:55 08/17/16 18:55 08/17/16 18:55 General appearance: Present: cooperative, A&O X 3, answers questions appropriately - Head Head exam: Present: atraumatic, normocephalic - Eye Eye exam: Present: PERRL, conjuntiva pink, sclera anicteric Pupils: Present: PERRL - Neck Neck exam general surgery: Present: supple, trachea midline. Absent: lymphadenopathy - Respiratory Respiratory exam: Present: CTAB. Absent: accessory muscle use, rales, rhonchi, wheezes - Cardiovascular Cardiovascular exam: Present: RRR, +S1, +S2. Absent: diastolic murmur, gallop, rubs, systolic murmur - GI/Abdominal GI/Abdominal exam: Present: normal bowel sounds, soft, no peritoneal signs. Absent: distended, tenderness - Extremities Exam Extremities exam: Present: warm, radial pulses palpable and symetrical. Absent : calf tenderness, cyanotic, pedal edema - Neurological Exam Neurological exam: Present: CN II-XII intact, oriented X3, no focal deficits. Absent: pronater drift, facial droop, speech deficit - Skin Skin exam: Present: dry, intact
== END 2016-08-17 23:55 | disposition other institution (70) ==
LOC: 2NENU
PROVIDERS: ADMIT Internal Medicine; ATTEND Internal Medicine